=== PATIENT | female | born 1985 | race Caucasian/White ===

== ENCOUNTER 2019-11-22 09:51 | Emergency (ER) | payer OTHER ==
[~2019-11-22] VITALS: Ht 165.1 cm; Wt 56.7 kg
[2019-11-22 09:53] VITALS: BP 107/68
--- NOTE | 2019-11-22 10:12 | Emergency Room Report ---
History of Present Illness General Chief Complaint: Vaginal Source: Patient Present Illness HPI Patient presents with left suprapubic pain that was severe. She gets this type of pain before her menstruation. Her menses are regular for her and her last menstruation was November 06. She was seen yesterday and was told she had cervical friability and that there was bleeding that came from that. She had more bleeding today. Also the pain was severe and she took 3 Motrin and now the pain is better. She denies any fevers or dysuria. She is also complaining about breast tenderness. This is unusual for her to have around her period. She denies dysuria or vaginal discharge. She states that at times she has severe premenstrual cramps that make her weak, pale and are severe. The pain was similar to that this time. When she arrived the pain was 10/10. When I examined her she says the pain was resolving. Systems for COVID-19 negative Allergies: Coded Allergies: No Known Allergies (Unverified , 11/22/19) COVID-19 Screening Contact w/high risk pt: No Experienced COVID-19 symptoms?: No COVID-19 Testing performed MARINE EQUIPMENT PRESERVATION INSPECTOR: No Patient History Past Medical History: see triage record Social History: Reports: alcohol use, drug use - thc; Denies: smoking Social History Narrative freelance artist Last Menstrual Period: 11/07/2019 Reviewed Nursing Documentation: PMH: Agreed; PSxH: Agreed Nursing Documentation-PMH Past Medical History: No Stated History Review of Systems All Other Systems: negative except mentioned in HPI Physical Exam Vital Signs Date Time Temp Pulse Resp B/P (MAP) Pulse Ox O2 Delivery O2 Flow Rate FiO2 11/22/19 09:53 97.5 64 16 107/68 (81) 100 Room Air Sp02 EP Interpretation: reviewed, normal General Appearance: well appearing, no apparent distress, GCS 15 Head: normocephalic Eyes: bilateral eye normal inspection, bilateral eye PERRL, bilateral eye EOMI ENT: other Neck: supple Respiratory: lungs clear, normal breath sounds Cardiovascular #1: regular rate, rhythm Cardiovascular #2: 2+ radial (R) Gastrointestinal: normal inspection, normal bowel sounds, non tender, no mass, non-distended Genitourinary: no CVA tenderness, deferred - For ultrasound Musculoskeletal: back normal, normal range of motion, gait/station normal Neurologic: alert, oriented x3 Medical Decision Making Diagnostic Impression: Primary Impression: Suprapubic pain Additional Impressions: Abnormal vaginal bleeding Ovarian cyst Qualified Codes: N83.202 - Unspecified ovarian cyst, left side ER Course Patient presents with midcycle bleeding, left-sided suprapubic pain and breast tenderness. Differential includes ectopic , urinary tract infection, PID, dysfunctional uterine bleeding, threatened miscarriage, fibroid amongst others. Evaluation with labs and urinalysis and urine test along with ultrasound. Lack of fever and the resolution of pain is against pelvic inflammatory disease. Patient requests no IV and no labs at this time. She agreed with urinalysis and urine and ultrasound. Discussion between the patient loan servicing representative and the patient centered around a possible $500 co-pay and she was quite concerned. She stated she could go to her own physician and obtain an ultrasound for $3. Discussion with the patient rep revolved around the fact that emergency room visit was already underway and that the co-pay would most likely be charged anyway. At this point the patient elected to have the ultrasound done. Ultrasound with left ovarian cyst with minimal fluid in the cul-de-sac. Urinalysis with negative and normal urinalysis. Patient continues to state that the pain is improved at this time. Results discussed with patient. Patient stable for outpatient observation and treatment. Laboratory Tests Test 11/22/19 10:15 Urine Color Yellow Urine Appearance Slightly cloudy Urine pH 6 (4.5-8.0) Urine Specific [place] 1.020 (1.005-1.035) Urine Protein 2+ (NEGATIVE) H Urine Glucose (UA) Negative (NEGATIVE) Urine Ketones 1+ (NEGATIVE) H Urine Blood 5+ (NEGATIVE) H Urine Nitrite Negative (NEGATIVE) Urine Bilirubin Negative (NEGATIVE) Urine Urobilinogen Normal MG/DL (0.0-1.0) Urine Leukocyte Esterase 1+ (NEGATIVE) H Urine RBC 15-20 /HPF (0 - 2) H Urine WBC 0-2 /HPF (0 - 2) Urine Squamous Epithelial Cells Few /LPF (NONE/OCC) Urine Bacteria Few /HPF (NONE) Urine Mucus Moderate /LPF (NONE/OCC) H Urine HCG, Qualitative Negative (NEGATIVE) CT/MRI/US Diagnostic Results CT/MRI/US Diagnostic Results : Imaging Test Ordered: Pelvic ultrasound Impression Findings: Uterus measures 7.8 cm in length by 3 cm AP. Endometrium measures 5 mm thick. No myometrial abnormality. There are cervical nabothian cysts noted. There is a small amount of free cul-de-sac fluid. The left ovary measures 3.5 cm length. Demonstrates prominent follicles, one of which may be involuted. The right ovary measures 2.6 cm length. Doppler flow is demonstrated in both ovaries. Impression: No acute or significant abnormality demonstrated. Small amount of free pelvic fluid, presumably physiologic Incidental finding of cervical nabothian cysts Last Vital Signs Date Time Temp Pulse Resp B/P (MAP) Pulse Ox O2 Delivery O2 Flow Rate FiO2 11/22/19 12:16 61 16 112/66 100 Room Air 11/22/19 09:53 97.5 Status: improved Disposition: HOME, SELF-CARE Condition: Improved Yuan Washington MD Nov 22, 2019 10:12
[2019-11-22 10:36] LABS: APPEARANCE,URINE SLIGHTLY CLOUDY; BILIRUBIN, URINE NEGATIVE (NEGATIVE); GLUCOSE, URINE (UA) NEGATIVE (NEGATIVE); KETONES,URINE 1+ (NEGATIVE); LEUKOCYTE ESTERASE ,URINE 1+ (NEGATIVE); NITRITE,URINE NEGATIVE (NEGATIVE); PH,URINE 6 (4.5-8.0); PROTEIN,URINE 2+ (NEGATIVE); UROBILINOGEN,URINE NORMAL MG/DL (0.0-1.0)
[2019-11-22 10:45] LABS: COLOR,URINE YELLOW
[2019-11-22 12:16] VITALS: BP 112/66
--- NOTE | 2019-11-22 12:31 | Diagnostic Imaging Report ---
Indication: Suprapubic pelvic plane, vaginal bleeding, negative test Technique: Transabdominal and transvaginal images of the pelvis. Doppler interrogation of the ovaries Comparison: none Findings: Uterus measures 7.8 cm in length by 3 cm AP. Endometrium measures 5 mm thick. No myometrial abnormality. There are cervical nabothian cysts noted. There is a small amount of free cul-de-sac fluid. The left ovary measures 3.5 cm length. Demonstrates prominent follicles, one of which may be involuted. The right ovary measures 2.6 cm length. Doppler flow is demonstrated in both ovaries. Impression: No acute or significant abnormality demonstrated. Small amount of free pelvic fluid, presumably physiologic Incidental finding of cervical nabothian cysts
== END 2019-11-22 12:16 | disposition home or self-care (01) ==
LOC: EMR 11:50
DX: R10.2 Pelvic and perineal pain (principal); N83.202 Unspecified ovarian cyst, left side; N93.9 Abnormal uterine and vaginal bleeding, unspecified; N88.8 Other specified noninflammatory disorders of cervix uteri
CPT/HCPCS: 76830; 76856; 81003; 81025; 99284